=== PATIENT | male | born 1945 | race Caucasian/White ===

== ENCOUNTER 2020-03-28 11:02 | Outpatient (CLI) | payer MEDICARE ==
--- NOTE | 2020-03-28 12:01 | RAD ---
SACROILIAC JOINTS 3 VIEWS: 03/28/2020 HISTORY: 74-year-old male with "lumbosacral dysfunction" pain FINDINGS: Severe degenerative disc disease at L4-5 and L5-S1. No obvious destructive sacral osseous lesion iden tified. Mild degenerative sclerotic changes at upper portions of SI joints bilaterally, typical for this age group. No high-grade DJD or high-grade joint space narrowing of SI joints. No erosions. IMPRESSION: 1. No major pathology of sacroiliac joints. 2. Severe lower lumbar spondylosis
--- NOTE | 2020-03-28 12:52 | RAD ---
LUMBAR SPINE 4 VIEWS: HISTORY: Lumbosacral dysfunction, low back pain. FINDINGS: Multilevel degenerative changes are present. No acute fracture, subluxation, or bony destruction is identified. No change in alignment is noted on flexion or extension. There is mild levoscoliosis of the lumbar spine. IMPRESSION: Lumbar spondylosis. POS: [facility]
== END 2020-03-28 11:03 | disposition home or self-care (01) ==
LOC: BICRAD 11:02
PROVIDERS: ATTEND Family Medicine
DX: M53.87 Other specified dorsopathies, lumbosacral region (principal); M47.816 Spondylosis without myelopathy or radiculopathy, lumbar region; E11.59 Type 2 diabetes mellitus with other circulatory complications
CPT/HCPCS: 36415; 72110; 72202; 83036

== ENCOUNTER 2020-05-02 12:23 | Outpatient (CLI) | payer MEDICARE ==
--- NOTE | 2020-05-02 13:45 | CT ---
LUMBAR SPINE CT WITHOUT CONTRAST: HISTORY: Degenerative joint disease of the lumbar spine. Three years of low back pain. FINDINGS: Five lumbar-type vertebrae. Lumbar spine vertebral body height is maintained. No fracture. No spondylolisthesis or spondylolysis. Mild leftward curvature of the lumbar spine. Vacuum disc phenomenon at L4-L5 and L5-S1. Atherosclerosis and mild aneurysmal dilatation of the infrarenal abdominal aorta. Abdominal aorta lamine sures 3.2 x 2.9 cm just beyond the origin of the renal arteries, 3.0 x 3.1 cm in the mid infrarenal abdominal artery origin and 3.3 x 3.4 cm just before the aortic bifurcation. Left internal iliac morenita ry stent is noted. Visualized alimentary canal has a normal appearance. Symmetric attenuation of psoas muscles. Limited evaluation the contents of the central spinal canal and neural foramina due to technique. T12-L1: No significant central canal stenosis. Right neural foramen is patent. Mild to moderate left neural foraminal narrowing. L1-L2: Broad-based disc bulge abuts the thecal sac. No significant central canal stenosis. Bilaterall y, neural foramina are patent. L2-L3: Broad-based disc bulge with posterior osteophyte is noted. There is moderate to severe central canal stenosis. Moderate to severe right and moderate left neural foraminal narrowing due to osteophyte formation and posterior element hypertrophy. L3-L4: Broad-based disc bulge, ligament flavum thickening and facet hypertrophy result in moderate to severe central canal stenosis. Severe bilateral neural foraminal narrowing. L4-L5: Vacuum disc phenomenon. Broad-based disc bulge with central disc herniation. There is ligament um flavum thickening and facet hypertrophy. Moderate central canal stenosis. Moderate to severe bilateral neural foraminal narrowing. L5-S1: Vacuum disc phenomenon. Broad-based disc bulge abuts the thecal sac. Mild central canal stenos is. Moderate to severe bilateral neural foraminal. IMPRESSION: 1. No fracture. 2. Multilevel degenerative changes if the lumbar spine as detailed above. There is significant centra l canal stenosis and significant neural foraminal narrowing as detailed above. Transcribed Date/Time: 05/02/2020 2:16 PM
== END 2020-05-02 12:24 | disposition home or self-care (01) ==
LOC: BICCT 12:23
PROVIDERS: ATTEND Family Medicine
DX: M47.816 Spondylosis without myelopathy or radiculopathy, lumbar region (principal); M48.061 Spinal stenosis, lumbar region without neurogenic claudication
CPT/HCPCS: 72131

== ENCOUNTER 2021-01-14 09:07 | Inpatient (IN) | payer MEDICARE ==
[2021-01-14 09:56] LABS: #Eosinphils 0.3 thou/uL (0.0-0.7); #Lymphocytes 0.9 thou/uL (1.20-3.40); #Monocytes 0.6 thou/uL (0.11-0.59); #Neutrophils 6.3 thou/uL (1.40-6.50); %Basophils 0.4 % (0.0-1.0); %Eosinophils 4.1 % (0.0-10.0); %Lymphocytes 10.6 % (21.0-51.0); %Neutrophils 77.9 % (42.0-75.0); Hemoglobin 14.3 g/dL (14.0-18.0); Mean Corpuscular HGB CONC 35.7 g/dL (32.0-36.0); Mean Corpuscular Hemoglobin 34.3 pg (27.0-31.0); Mean Platelet Volume 8.1 fL (7.4-10.4); Platelet Count 208 thou/uL (130-400); Red Blood Cell (RBC) Count 4.17 mill/uL (4.70-6.10); White Blood Cell (WBC) Count 8.1 thou/uL (4.8-10.8)
[2021-01-14 10:03] LABS: Prothrombin Time 13.3 sec (12.0-14.7)
[2021-01-14 10:08] LABS: ALT (SGPT) 12 U/L (8-55); AST (SGOT) 11 U/L (5-34); Albumin 3.9 g/dL (3.4-4.8); Alkaline Phosphatase 82 U/L (40-110); Anion Gap 14 mmol/L (10-20); BUN (Urea Nitrogen) 15 mg/dL (8.4-25.7); Bilirubin, Total 0.9 mg/dL (0.2-1.2); Calc. Creatinine Clearance 0 mL/min (70-130); Carbon Dioxide 25 mmol/L (23-31); Chloride 97 mmol/L (98-107); Globulin 3.1 g/dL (2.4-3.5); Glucose 145 mg/dL (83-110); Potassium 3.9 mmol/L (3.5-5.1); Sodium 132 mmol/L (136-145)
[2021-01-14] MEDS ORDERED: Aspirin Chewable 81 MG TAB ONE (12:00)
[2021-01-14] MEDS ORDERED: hydrALAZINE 20 MG/ML VIAL SLOW IVP PRN (13:24)
[2021-01-14] MEDS ORDERED: Dextrose 5% in Water 1,000 ML IV PRN (13:32)
[2021-01-14] MEDS ORDERED: HumaLOG 300 UNITS/3 ML VIAL SC PRN (13:32)
[2021-01-14] MEDS ORDERED: Dextrose 50% Abboject 50 ML SYRINGE SLOW IVP PRN (13:32)
[2021-01-14 15:44] VITALS: BMI 29.2
[2021-01-14 15:52] LABS: Bilirubin Negative (Negative); Blood, Urine Trace (Negative); Glucose, Urine (Dipstick) Negative (Negative); Ketone, Urine Negative (Negative); Leukocyte Moderate (Negative); Nitrite Positive (Negative); Protein, Urine (Dipstick) Trace mg/dL (Neg-Trace); Urobilinogen 0.2 mg/dL (Less than 2)
[2021-01-14 15:53] LABS: Clarity Cloudy (Clear)
[2021-01-14 15:57] LABS: Bacteria/HPF 4+ HPF (None Seen); Squamous Epithelial None Seen HPF (0-3); WBC/HPF Greater than 50 HPF (0-3)
[2021-01-14 15:59] LABS: Urine Culture Reflex Yes Yes
[2021-01-14 16:10] LABS: Troponin I Less than 0.010 ng/mL (< 0.028)
[2021-01-14] MEDS: cefTRIAXone\\ROCEPHIN 1 GM in Sodium Chloride 0.9% 100 ML IVPB SCH (18:11)
[2021-01-14] MEDS: Atorvastatin Calcium 40 MG TAB PO SCH (21:09)
[2021-01-15 05:28] LABS: Cardiac Risk 4.4 (Less than 4.5)
[2021-01-15] MEDS ORDERED: Lorazepam 2 MG/ML VIAL SLOW IVP PRN (07:00)
[2021-01-15] MEDS: Lisinopril 10 MG TAB PO SCH (08:31)
[2021-01-15] MEDS: Hydrochlorothiazide 25 MG TAB PO SCH (08:31)
[2021-01-15] MEDS: Aspirin 81 mg Enteric Coated Tablet PO SCH (08:31)
[2021-01-15] MEDS: Clopidogrel Bisulfate 75 MG TAB PO SCH (08:32)
[2021-01-15] MEDS ORDERED: Non-Formulary Item 1 EACH (Sitagliptin Phos/Metformin Hcl [Janumet] 50 MG/500 MG Tablet) PO SCH (09:00)
[2021-01-15 10:41] LABS: #Eosinphils 0.4 thou/uL (0.0-0.7); #Lymphocytes 0.8 thou/uL (1.20-3.40); #Monocytes 0.5 thou/uL (0.11-0.59); #Neutrophils 4.6 thou/uL (1.40-6.50); %Basophils 0.2 % (0.0-1.0); %Eosinophils 5.8 % (0.0-10.0); %Lymphocytes 12.2 % (21.0-51.0); %Monocytes 7.5 % (0.0-10.0); %Neutrophils 74.3 % (42.0-75.0); Hemoglobin 13.7 g/dL (14.0-18.0); Mean Corpuscular HGB CONC 35.3 g/dL (32.0-36.0); Mean Corpuscular Hemoglobin 33.9 pg (27.0-31.0); Mean Platelet Volume 8.1 fL (7.4-10.4); Platelet Count 195 thou/uL (130-400); RBC Distribution Width 13.1 % (11.5-14.5); Red Blood Cell (RBC) Count 4.05 mill/uL (4.70-6.10); White Blood Cell (WBC) Count 6.1 thou/uL (4.8-10.8)
[2021-01-15 10:58] LABS: Anion Gap 14 mmol/L (10-20); BUN (Urea Nitrogen) 18 mg/dL (8.4-25.7); Calc. Creatinine Clearance 70 mL/min (70-130); Carbon Dioxide 25 mmol/L (23-31); Chloride 98 mmol/L (98-107); Glucose 239 mg/dL (83-110); Potassium 3.8 mmol/L (3.5-5.1); Sodium 133 mmol/L (136-145)
[2021-01-15] MEDS ORDERED: Iopamidol-370 76% 500 ML 1 ML ONE (11:06)
[2021-01-15] MEDS: Nebivolol HCl 5 MG TAB PO SCH (11:21)
[2021-01-15] MEDS: HumaLOG 300 UNITS/3 ML VIAL SC PRN (12:38)
[2021-01-15] MEDS: cefTRIAXone\\ROCEPHIN 1 GM in Sodium Chloride 0.9% 100 ML IVPB SCH (16:08)
[2021-01-15] MEDS: Atorvastatin Calcium 40 MG TAB PO SCH (21:15)
[2021-01-16 05:07] LABS: #Eosinphils 0.5 thou/uL (0.0-0.7); #Lymphocytes 1.4 thou/uL (1.20-3.40); #Monocytes 0.8 thou/uL (0.11-0.59); #Neutrophils 4.9 thou/uL (1.40-6.50); %Basophils 0.2 % (0.0-1.0); %Eosinophils 6.5 % (0.0-10.0); %Monocytes 10.4 % (0.0-10.0); %Neutrophils 64.8 % (42.0-75.0); Hemoglobin 13.6 g/dL (14.0-18.0); Mean Corpuscular HGB CONC 34.2 g/dL (32.0-36.0); Mean Corpuscular Hemoglobin 32.4 pg (27.0-31.0); Mean Corpuscular Volume 94.8 fL (78.0-98.0); Platelet Count 207 thou/uL (130-400); RBC Distribution Width 13.1 % (11.5-14.5); White Blood Cell (WBC) Count 7.6 thou/uL (4.8-10.8)
[2021-01-16 05:29] LABS: Anion Gap 16 mmol/L (10-20); BUN (Urea Nitrogen) 20 mg/dL (8.4-25.7); Calc. Creatinine Clearance 73 mL/min (70-130); Calcium 9.1 mg/dL (7.8-10.44); Carbon Dioxide 23 mmol/L (23-31); Chloride 98 mmol/L (98-107); Glucose 147 mg/dL (83-110); Potassium 3.6 mmol/L (3.5-5.1); Sodium 133 mmol/L (136-145)
[2021-01-16] MEDS: Aspirin 81 mg Enteric Coated Tablet PO SCH (09:25)
[2021-01-16] MEDS: Nebivolol HCl 5 MG TAB PO SCH (09:26)
[2021-01-16] MEDS: Lisinopril 10 MG TAB PO SCH (09:26)
[2021-01-16] MEDS: Clopidogrel Bisulfate 75 MG TAB PO SCH (09:27)
[2021-01-16] MEDS: Hydrochlorothiazide 25 MG TAB PO SCH (09:27)
[2021-01-16] MEDS: Alogliptin 6.25 MG TAB PO SCH (09:27)
[2021-01-16] MEDS: metFORMIN 500 MG TAB PO SCH (09:27)
[2021-01-16] MEDS: HumaLOG 300 UNITS/3 ML VIAL SC PRN ×2 (11:37→17:34)
[2021-01-16] MEDS: cefTRIAXone\\ROCEPHIN 1 GM in Sodium Chloride 0.9% 100 ML IVPB SCH (16:32)
[2021-01-16] MEDS: Nitrofurantoin Monohyd/M-Cryst 100 MG CAP PO SCH (21:36)
[2021-01-16] MEDS: Atorvastatin Calcium 40 MG TAB PO SCH (21:36)
[2021-01-17 04:52] LABS: #Eosinphils 0.5 thou/uL (0.0-0.7); #Lymphocytes 1.6 thou/uL (1.20-3.40); #Monocytes 0.6 thou/uL (0.11-0.59); #Neutrophils 4.1 thou/uL (1.40-6.50); %Basophils 0.3 % (0.0-1.0); %Eosinophils 7.8 % (0.0-10.0); %Lymphocytes 23.3 % (21.0-51.0); %Monocytes 9.2 % (0.0-10.0); %Neutrophils 59.4 % (42.0-75.0); Mean Corpuscular HGB CONC 33.6 g/dL (32.0-36.0); Mean Corpuscular Hemoglobin 31.8 pg (27.0-31.0); Mean Corpuscular Volume 94.6 fL (78.0-98.0); Mean Platelet Volume 8.2 fL (7.4-10.4); Platelet Count 205 thou/uL (130-400); RBC Distribution Width 13.1 % (11.5-14.5); White Blood Cell (WBC) Count 6.9 thou/uL (4.8-10.8)
[2021-01-17 05:09] LABS: Anion Gap 15 mmol/L (10-20); BUN (Urea Nitrogen) 24 mg/dL (8.4-25.7); Calc. Creatinine Clearance 73 mL/min (70-130); Calcium 8.8 mg/dL (7.8-10.44); Carbon Dioxide 24 mmol/L (23-31); Chloride 98 mmol/L (98-107); Glucose 132 mg/dL (83-110); Potassium 3.5 mmol/L (3.5-5.1); Sodium 133 mmol/L (136-145)
[2021-01-17] MEDS: Alogliptin 6.25 MG TAB PO SCH (10:26)
[2021-01-17] MEDS: Nitrofurantoin Monohyd/M-Cryst 100 MG CAP PO SCH ×2 (10:28→19:56)
[2021-01-17] MEDS: Clopidogrel Bisulfate 75 MG TAB PO SCH (10:28)
[2021-01-17] MEDS: metFORMIN 500 MG TAB PO SCH (10:29)
[2021-01-17] MEDS: Hydrochlorothiazide 25 MG TAB PO SCH (10:30)
[2021-01-17] MEDS: Lisinopril 10 MG TAB PO SCH (10:30)
[2021-01-17] MEDS: Nebivolol HCl 5 MG TAB PO SCH (10:31)
[2021-01-17] MEDS: Aspirin 81 mg Enteric Coated Tablet PO SCH (11:13)
[2021-01-17] MEDS: HumaLOG 300 UNITS/3 ML VIAL SC PRN (12:31)
[2021-01-17] MEDS: Atorvastatin Calcium 40 MG TAB PO SCH (19:55)
[2021-01-18 04:49] LABS: #Eosinphils 0.5 thou/uL (0.0-0.7); #Lymphocytes 1.6 thou/uL (1.20-3.40); #Monocytes 0.5 thou/uL (0.11-0.59); #Neutrophils 4.1 thou/uL (1.40-6.50); %Basophils 0.3 % (0.0-1.0); %Neutrophils 60.7 % (42.0-75.0); Mean Corpuscular HGB CONC 33.2 g/dL (32.0-36.0); Mean Corpuscular Hemoglobin 31.2 pg (27.0-31.0); Mean Platelet Volume 7.6 fL (7.4-10.4); Platelet Count 224 thou/uL (130-400); Red Blood Cell (RBC) Count 4.16 mill/uL (4.70-6.10); White Blood Cell (WBC) Count 6.8 thou/uL (4.8-10.8)
[2021-01-18 05:12] LABS: Anion Gap 13 mmol/L (10-20); BUN (Urea Nitrogen) 21 mg/dL (8.4-25.7); Calc. Creatinine Clearance 80 mL/min (70-130); Calcium 8.9 mg/dL (7.8-10.44); Carbon Dioxide 25 mmol/L (23-31); Chloride 98 mmol/L (98-107); Glucose 132 mg/dL (83-110); Potassium 3.4 mmol/L (3.5-5.1); Sodium 133 mmol/L (136-145)
[2021-01-18] MEDS: Lisinopril 10 MG TAB PO SCH (09:41)
[2021-01-18] MEDS: Aspirin 81 mg Enteric Coated Tablet PO SCH (09:41)
[2021-01-18] MEDS: Clopidogrel Bisulfate 75 MG TAB PO SCH (09:41)
[2021-01-18] MEDS: Nebivolol HCl 5 MG TAB PO SCH (09:41)
[2021-01-18] MEDS: Alogliptin 6.25 MG TAB PO SCH (09:43)
[2021-01-18] MEDS: Hydrochlorothiazide 25 MG TAB PO SCH (09:43)
[2021-01-18] MEDS: Nitrofurantoin Monohyd/M-Cryst 100 MG CAP PO SCH (09:43)
[2021-01-18] MEDS: metFORMIN 500 MG TAB PO SCH (09:43)
[2021-01-18] MEDS ORDERED: Potassium Chloride 20 MEQ TAB PO SCH (09:45)
[2021-01-18 11:51] VITALS: BP 123/68; TEMP 97.8
== END 2021-01-18 12:32 | disposition home health service (06) | DRG 69 ==
LOC: ERS 09:07 → 2SE 12:21 → OBSVTOIN 01-15 18:36
PROVIDERS: ADMIT Internal Medicine; ATTEND Internal Medicine
DX: G45.9 Transient cerebral ischemic attack, unspecified (principal); N39.0 Urinary tract infection, site not specified; E87.1 Hypo-osmolality and hyponatremia; E78.5 Hyperlipidemia, unspecified; I10 Essential (primary) hypertension; F17.210 Nicotine dependence, cigarettes, uncomplicated; E11.9 Type 2 diabetes mellitus without complications; B96.20 Unspecified Escherichia coli [E. coli] as the cause of diseases classified elsewhere; E87.6 Hypokalemia; G89.29 Other chronic pain; Z90.49 Acquired absence of other specified parts of digestive tract; Z79.02 Long term (current) use of antithrombotics/antiplatelets; Z90.79 Acquired absence of other genital organ(s)
CPT/HCPCS: 36415; 36416; 70450; 70496; 70551; 71045; 80048; 80053; 80061; 81001; 84484; 85025; 85610; 85730; 87077; 87086; 87186; 93005; 93306; 93880; 95712; 95816; 95819; 95957; 96374; 96375; 96376; G0378; J0696; J1815; J2060; J3490; Q9967

== ENCOUNTER 2021-02-19 08:10 | Outpatient (CLI) | payer MEDICARE | END 2021-02-19 08:11 | disposition home or self-care (01) | LOC: BICRAD 08:10 | PROVIDERS: ATTEND Nurse Practitioner Family | DX: M25.551 Pain in right hip (principal); M16.11 Unilateral primary osteoarthritis, right hip ==